=== PATIENT | male | born 1955 | race Caucasian/White ===

== ENCOUNTER 2022-11-11 15:22 | Emergency (ER) | payer MEDICARE, SELFPAY ==
--- NOTE | 2022-11-11 | DI.US_ITS ---
Exam(s) US SOFT TISSUE EXTREMITY EXAM: US SOFT TISSUE EXTREMITY CLINICAL HISTORY: hematoma. TECHNIQUE: Ultrasound was performed using standard protocol. COMPARISON: No exams were available for comparison FINDINGS: Images submitted for interpretation from ultrasound examination of the anterolateral right lower leg- apparent area of clinical concern. The submitted images reveal a mix echogenic nonvascular mass measuring 5 x 1.7 x 3.8 cm. First consi deration is for hematoma. Close follow-up to resolution recommended. IMPRESSION: 5 x 1.7 x 3.8 cm probable hematoma. Close follow-up recommended. DATA REPOSITORY:
[2022-11-11 15:29] VITALS: BP 178/98; PULSE 81; RESP 15; TEMP 36.4; O2SAT 99
--- NOTE | 2022-11-11 16:29 | ED.GENADUL_ITS ---
Discharge Plan Disposition Patient Disposition: Home Condition: Stable Discharge Details Clinical Impression: Cellulitis ED Provider: Aga Andrade Home Meds and New Rx's Prescriptions: New cephalexin 500 mg capsule 500 mg PO QID Qty: 28 0RF No Action clindamycin HCl 150 mg capsule 450 mg PO TID 7 Days Qty: 63 0RF Discharge Instructions Instructions: Cellulitis (ED) Additional Instructions: Continue heat or ice to the area for comfort and elevation to help reduce swelling Take antibiotic as prescribed Referrals: Virginie Montenegro MD [ [facility] STAFF PHYSICIAN] - (Call next week for recheck if not improving return sooner if worsening) Discharge Data Discharge Date/Time-TO BE ENTERED AT DEPARTURE: 11/11/22 16:45 Medical Decision Making <Aga Andrade NP - Last Filed: 11/11/22 16:36> Medical Records Medical records reviewed: Yes I reviewed the patient's medical records. Imaging Data Radiologic Study: Imaging: Ultrasound (Right lower extremity) Radiologist's impression: Close Extremity Ultrasound (Signed) Román Saenz - 11/11/22 00:00 Launch?Image Patient Name: Romel Pritchard Unit #: [id number] Loc: ER ? Ordering Provider:? Aga Andrade [employer] CLERK Status: REG ER ? Primary Care Provider: Unknown,Unknown Date of Exam: 11/11/22 Sex: M ? Admission Date: 11/11/22? : 1955 ? Age: 67 ? Exam(s) US SOFT TISSUE EXTREMITY EXAM:? US SOFT TISSUE EXTREMITY CLINICAL HISTORY: ? hematoma.? TECHNIQUE:? Ultrasound was performed using standard protocol. COMPARISON:? No exams were available for comparison FINDINGS: Images submitted for interpretation from ultrasound examination of the anterolateral right lower leg-apparent area of clinical concern. The submitted images reveal a mix echogenic nonvascular mass measuring 5 x 1.7 x 3.8 cm.? First consideration is for hematoma.? Close follow-up to resolution recommended. IMPRESSION: 5 x 1.7 x 3.8 cm probable hematoma.? Close follow-up recommended.? DATA REPOSITORY:? <Je Lundy MD - Last Filed: 11/23/22 17:34> Note: I did not evaluate this patient. The patient was seen, evaluated, treated and dispositioned independently by MADELINE Andrade. HPI <Aga Andrade NP - Last Filed: 11/11/22 16:36> General Mode of arrival: ambulatory . Date/Time Provider Initiated Documentation: 11/11/22 15:24 . Limitations to Documentation: no limitations . Information obtained by: patient . HPI Narrative: 67-year-old male patient presents to the emergency department for evaluation of right lower extremity swelling and now redness. He originally injured his leg last weekend striking it against something he had a small abrasion the area had significant swelling which has improved. He has kept it iced and elevated. Today he is noticing some erythema distally to the original injury. He has had no fever or signs of systemic infection. His vital signs are stable he has been ambulatory and again repeat porting improvement in the swelling but now with erythema. Related Data Home Medications Medication Instructions Recorded Confirmed cephalexin 500 mg capsule 500 mg PO QID #28 caps 11/11/22 11/18/22 clindamycin HCl 150 mg capsule 450 mg PO TID 7 days #63 caps 11/18/22 Previous Rx's Medication Instructions Recorded cephalexin 500 mg capsule 500 mg PO QID #28 caps 11/11/22 clindamycin HCl 150 mg capsule 450 mg PO TID 7 days #63 caps 11/18/22 Allergies Allergy/AdvReac Type Severity Reaction Status Date / Time NSAIDS (Non-Steroidal AdvReac Mild Hives Unverified 11/18/22 12:28 Anti-Inflamma General Stated Complaint: Cellulitis RITCHIE: 3 Review of Systems <Aga Andrade NP - Last Filed: 11/11/22 16:36> All systems reviewed & are unremarkable except as noted in HPI and below PFSH <Aga Andrade NP - Last Filed: 11/11/22 16:36> All Active Problems (Updated 11/18/22 @ 12:57 by En Clements NP) Cellulitis (Acute) Elevated blood pressure reading (Acute) Social History Smoking/Tobacco Use Status: Never Smoking risk assessment performed?: Yes Alcohol Intake: never Drug use: Never Substance use type: does not use Do you feel safe at home: Yes Do you feel safe in your relationship?: Yes Exam <Aga Andrade NP - Last Filed: 11/11/22 16:36> Const General: cooperative, healthy appearing, comfortable and no acute distress Nutritional Appearance: average body habitus Orientation: alert, awake and oriented x3 Skin General skin exam: ecchymosis (Yellowing consistent with healing) Lesions: lesion noted (Healing abrasion to right lower extremity) and other (Approximately 5 cm hematoma) Rashes: rashes noted (Erythema distally area marked) Neuro General: patient alert, patient awake and patient oriented x3 Gait: other (Limp) Motor: muscle tone normal throughout Course <Aga Andrade NP - Last Filed: 11/11/22 16:36> Vital Signs Vital signs: Vital Signs Temperature 36.4 C L 11/11/22 15:29 Pulse 81 11/11/22 15:29 Respiratory Rate 15 11/11/22 15:29 Blood Pressure 178/98 H 11/11/22 15:29 Pulse Oximetry 99 11/11/22 15:29 Temperature 36.4 C L 11/11/22 15:29 Temperature Source Temporal Artery Scan 11/11/22 15:29 Pulse 81 11/11/22 15:29 Respiratory Rate 15 11/11/22 15:29 Respiratory Effort Normal 11/11/22 15:35 Blood Pressure 178/98 H 11/11/22 15:29 Blood Pressure Position Sitting 11/11/22 15:29 Pulse Oximetry 99 11/11/22 15:29 Oxygen Delivery Method Room Air 11/11/22 15:29 Oxygen Flow Rate 0 11/11/22 15:29 Pain Level 0 11/11/22 15:29
== END 2022-11-11 16:45 | disposition home or self-care (01) ==
PROVIDERS: Emergency Provider Nurse Practitioner Acute Care
DX: L03.115 Cellulitis of right lower limb (principal)
CPT/HCPCS: 76881; 99284

== ENCOUNTER 2022-11-18 12:01 | Emergency (ER) | payer MEDICARE, SELFPAY ==
[2022-11-18 12:21] VITALS: BP 212/113; PULSE 66; RESP 18; TEMP 37.1; O2SAT 98
--- NOTE | 2022-11-18 12:52 | W.ED.GENAD ---
Discharge Plan Disposition Patient Disposition: Home Discharge Details Clinical Impression: Cellulitis, Elevated blood pressure reading Primary Care Provider: Raisa,Local ED Provider: En Clements Home Meds and New Rx's Prescriptions: New clindamycin HCl 150 mg capsule 450 mg PO TID 7 Days Qty: 63 0RF Continued cephalexin 500 mg capsule 500 mg PO QID Qty: 28 0RF Discharge Instructions Instructions: Cellulitis (ED) Additional Instructions: Please continue to monitor your site of infection and return immediately for any new or significant worsening of symptoms. Please start the new antibiotic as discussed and take until fully completed. It was also noted and discussed today about your significantly elevated blood pressure. At this time it is recommended that you follow-up with your primary care provider and after discussion we are not starting you on medication that would be the standard of care. Referrals: [facility] [Provider Group] - 1 week (Please call the office for arrangement of follow-up appointment next week) Discharge Data Discharge Date/Time-TO BE ENTERED AT DEPARTURE: 11/18/22 13:02 Medical Decision Making Patient presenting to the emergency department for chief complaint of right lower extremity hematoma and infection. Patient was seen approximately 5 days ago and placed upon Keflex for secondary cellulitis and had ultrasound imaging that confirmed hematoma. Patient states he took his last dose of the antibiotic this morning but is continuing to have redness and discomfort but does note that it did significantly improve since being on the medication. Patient denies any other symptoms. Physical exam consistent with hematoma and secondary cellulitis. There is still moderate amount of cellulitis present with also noted hematoma. Exam otherwise unremarkable no signs of systemic illness or full antibiotic failure. Did call and speak with Dr. Watkins on-call general surgeon about hematoma evacuation versus further monitoring. After full discussion of the case we decided that patient will be placed upon clindamycin and will be seen in general surgeons office next week for any further intervention as needed if not fully improving. Of note patient did have significantly elevated blood pressure. Patient states that he has had this for a while and was at one time on medications but they did not work . Discussed starting patient on medication here today and patient is adamant and refuses that he does not want any blood pressure medications. Did thoroughly discuss the risk with patient of his hypertension that was even noted on his last emergency visit. Again even through discussion of risk versus benefit patient is refusing to start on any medication and states he will follow-up with a primary care provider for recheck once he is done with his infection as he suspects this is what is causing the elevation. Offered to put patient on list for establishment of primary care provider given he does not have one but he states he will just follow-up with general surgeon next week. After discussion of diagnosis and plan of care patient has no further needs, questions, or concerns and states clear understanding to return to the emergency department for any worsening symptoms. This documentation was generated using [employer] system, please disregard any oddities of phrase or misspellings. HPI General Mode of arrival: ambulatory. Date/Time Provider Initiated Documentation: 11/18/22 12:09. Limitations to Documentation: no limitations. Information obtained by: patient and RN notes reviewed. History of Present Illness 67 year old M presents to the emergency department with the chief complaint of Right leg injury/infection, described as moderate, Quality is described as aching, and is localized to the right and lower extremity. Patient started experiencing this week(s) (2) and it has been constant. Medication improves symptom(s), Patient notes no other symptoms.. Patient did receive the following treatments prior to arrival, other (Keflex) Related Data Home Medications Medication Instructions Recorded Confirmed cephalexin 500 mg capsule 500 mg PO QID #28 caps 11/11/22 11/18/22 clindamycin HCl 150 mg capsule 450 mg PO TID 7 days #63 caps 11/18/22 Previous Rx's Medication Instructions Recorded cephalexin 500 mg capsule 500 mg PO QID #28 caps 11/11/22 clindamycin HCl 150 mg capsule 450 mg PO TID 7 days #63 caps 11/18/22 Allergies Allergy/AdvReac Type Severity Reaction Status Date / Time NSAIDS (Non-Steroidal AdvReac Mild Hives Unverified 11/18/22 12:28 Anti-Inflamma General Stated Complaint: Recheck RITCHIE: 3 Review of Systems Constitutional Constitutional: Denies body ache(s), Denies chills, Denies fever(s) and Denies headache(s) ENT Ears, Nose, Mouth, and Throat: Denies headache(s) Musculoskeletal Musculoskeletal: Reports as per HPI, Denies numbness and Denies tingling Integumentary/Breasts Skin/Breast: Reports as per HPI, Reports non-healing lesions and Reports erythema Neurologic Neurologic: Denies headache(s), Denies numbness and Denies tingling PFSH All Active Problems (Updated 11/18/22 @ 12:57 by En Clements NP) Cellulitis (Acute) Elevated blood pressure reading (Acute) Social History Smoking/Tobacco Use Status: Never Smoking risk assessment performed?: Yes Alcohol Intake: never Drug use: Never Substance use type: does not use Do you feel safe at home: Yes Do you feel safe in your relationship?: Yes Exam Const General: cooperative, healthy appearing, comfortable and no acute distress Nutritional Appearance: average body habitus Orientation: alert, awake and oriented x3 HENMT Mouth: moist mucous membranes Resp Effort & Inspection: normal respiratory effort, able to speak in complete sentences and no respiratory distress Cardio Rate: regular rate Rhythm: regular rhythm Pulses: normal peripheral pulses Skin General skin exam: ecchymosis (Yellowing consistent with healing) Lesions: lesion noted (Healing abrasion to right lower extremity) and other (Approximately 5 cm hematoma) Rashes: rashes noted (Erythema distally area marked) Neuro General: patient alert, patient awake and patient oriented x3 Motor: muscle tone normal throughout Sensory Exam: no sensory deficits noted Course Vital Signs Vital signs: Vital Signs Temperature 37.1 C 11/18/22 12:21 Pulse 66 11/18/22 12:21 Respiratory Rate 18 11/18/22 12:21 Blood Pressure 212/113 H 11/18/22 12:21 Pulse Oximetry 98 11/18/22 12:21 Temperature 37.1 C 11/18/22 12:21 Temperature Source Temporal Artery Scan 11/18/22 12:21 Pulse 66 11/18/22 12:21 Respiratory Rate 18 11/18/22 12:21 Respiratory Effort Normal, Non-Labored 11/18/22 12:29 Blood Pressure 212/113 H 11/18/22 12:21 Blood Pressure Position Sitting 11/18/22 12:21 Pulse Oximetry 98 11/18/22 12:21 Oxygen Delivery Method Room Air 11/18/22 12:21 Oxygen Flow Rate 0 11/18/22 12:21
--- NOTE | 2022-11-18 12:53 | NUR.NOTE ---
Nursing Note: PT needs follow up next week with general surgery to recheck hematoma & cellulitis. Angelina, ED
== END 2022-11-18 13:02 | disposition home or self-care (01) ==
PROVIDERS: Emergency Provider Nurse Practitioner Family
DX: L03.115 Cellulitis of right lower limb (principal); R03.0 Elevated blood-pressure reading, without diagnosis of hypertension
CPT/HCPCS: 99283; 99284

== ENCOUNTER → 2022-11-25 09:52 | Outpatient (BNVA) | payer MEDICARE, SELFPAY | PROVIDERS: Visit Provider Surgery | DX: S80.11XA Contusion of right lower leg, initial encounter (principal); W19.XXXA Unspecified fall, initial encounter; L08.9 Local infection of the skin and subcutaneous tissue, unspecified; L03.115 Cellulitis of right lower limb | CPT/HCPCS: 10140; 99203 ==

== ENCOUNTER → 2022-11-26 11:15 | Outpatient (BNVA) | payer MEDICARE, SELFPAY | PROVIDERS: Visit Provider Surgery | DX: L03.115 Cellulitis of right lower limb (principal); S80.11XD Contusion of right lower leg, subsequent encounter; X58.XXXD Exposure to other specified factors, subsequent encounter | CPT/HCPCS: 99212 ==

== ENCOUNTER → 2022-11-28 09:23 | Outpatient (BNVA) | payer MEDICARE, SELFPAY | PROVIDERS: Visit Provider Surgery | DX: S80.11XD Contusion of right lower leg, subsequent encounter (principal); X58.XXXD Exposure to other specified factors, subsequent encounter | CPT/HCPCS: 97605; 99212 ==

== ENCOUNTER → 2022-12-05 09:17 | Outpatient (BNVA) | payer MEDICARE, SELFPAY | PROVIDERS: Visit Provider Surgery | DX: S80.11XD Contusion of right lower leg, subsequent encounter (principal); X58.XXXD Exposure to other specified factors, subsequent encounter | CPT/HCPCS: 97605; 99212 ==

== ENCOUNTER → 2022-12-09 14:49 | Outpatient (BNVA) | payer MEDICARE, SELFPAY | PROVIDERS: Visit Provider Physical Therapy Assistant | DX: Z51.89 Encounter for other specified aftercare (principal); R60.0 Localized edema | CPT/HCPCS: 97605 ==

== ENCOUNTER → 2022-12-16 08:55 | Outpatient (BNVA) | payer MEDICARE, SELFPAY | PROVIDERS: Visit Provider Surgery | DX: S80.11XD Contusion of right lower leg, subsequent encounter (principal); X58.XXXD Exposure to other specified factors, subsequent encounter | CPT/HCPCS: 99212; 99213 ==

== ENCOUNTER → 2022-12-23 13:26 | Outpatient (BNVA) | payer MEDICARE, SELFPAY | PROVIDERS: Visit Provider Physical Therapy Assistant | DX: S80.11XD Contusion of right lower leg, subsequent encounter (principal); X58.XXXD Exposure to other specified factors, subsequent encounter | CPT/HCPCS: 11042 ==

== ENCOUNTER → 2022-12-30 13:13 | Outpatient (BNVA) | payer MEDICARE, SELFPAY | PROVIDERS: Visit Provider Physical Therapy Assistant | DX: S80.11XD Contusion of right lower leg, subsequent encounter (principal); X58.XXXD Exposure to other specified factors, subsequent encounter; L30.8 Other specified dermatitis | CPT/HCPCS: 11042; 11104; 11105 ==

== ENCOUNTER 2022-12-30 14:07 | Outpatient (REF) | payer MEDICARE, SELFPAY ==
--- NOTE | 2022-12-30 14:10 | SKI_PTH ---
PATIENT: Romel Pritchard LOC: [facility] U#:[id number] AGE/SX: 67/M ROOM: RE12/30/[address]: CHARLES Marshall : 1955 BED: DIS: 12/30/2022 SPEC #: [id number] RECD: 12/30/22 16:05 STATUS: BING REZaira #: [id number] LUDY: 12/30/22 14:[address]: Jerilyn Potter DEPT: Surgical Specimen RECD BY: Jing Mathews ENTERED: 12/30/22 16:06 SP TYPE: KELLY BRAUN DR: No Local Tissues: 1 - SKIN BIOPSY(SHAVE/PUNCH) 2 - SKIN BIOPSY(SHAVE/PUNCH) 3 - SKIN BIOPSY(SHAVE/PUNCH) 4 - SKIN BIOPSY(SHAVE/PUNCH) Procedures: SKIN LEVEL 4 SPECIAL STAIN 1 Comments: [id number]
== END 2022-12-30 14:08 | disposition home or self-care (01) ==
LOC: LBN 14:07
PROVIDERS: Visit Provider Physical Therapy Assistant
DX: L30.8 Other specified dermatitis (principal)
CPT/HCPCS: 88305; 88312

== ENCOUNTER → 2023-01-06 13:15 | Outpatient (BNVA) | payer MEDICARE, SELFPAY | PROVIDERS: Visit Provider Physical Therapy Assistant | DX: S80.11XD Contusion of right lower leg, subsequent encounter (principal); X58.XXXD Exposure to other specified factors, subsequent encounter; L30.8 Other specified dermatitis | CPT/HCPCS: 11042 ==

== ENCOUNTER → 2023-01-13 10:21 | Outpatient (BNVA) | payer MEDICARE, SELFPAY | PROVIDERS: Visit Provider Surgery | DX: S80.11XD Contusion of right lower leg, subsequent encounter (principal); X58.XXXD Exposure to other specified factors, subsequent encounter | CPT/HCPCS: 97605; 99212 ==

== ENCOUNTER → 2023-01-17 10:29 | Outpatient (BNVA) | payer MEDICARE, SELFPAY | PROVIDERS: Visit Provider Physical Therapy Assistant | DX: S80.11XD Contusion of right lower leg, subsequent encounter (principal); X58.XXXD Exposure to other specified factors, subsequent encounter | CPT/HCPCS: 97605 ==

== ENCOUNTER 2023-01-17 10:40 | Emergency (ER) | payer MEDICARE, SELFPAY ==
[2023-01-17] VITALS (8 sets, daily range): BP systolic 151–204; BP diastolic 87–118; PULSE 57–75; RESP 18–22; TEMP 36.5; O2SAT 96–99
--- NOTE | 2023-01-17 10:45 | DI.CT_ITS ---
Exam(s) CT BRAIN NECK CTA EXAM: CT BRAIN NECK CTA CLINICAL HISTORY: pain in left head and neck, eval for bleed, tumor. TECHNIQUE: Imaging Protocol: Axial CT angiography was performed with multi-slice acquisition and mu lti-planar and 3D reconstructions. CONTRAST MATERIAL: Intravenous: Omnipaque 350 Contrast volume:structured data in ml COMPARISON: No exams were available for comparison FINDINGS: CT Head W/O and W contrast: Ventricles and Extra axial spaces: Normal in size and morphology for the patient's age. Hemorrhage: None. Cerebral parenchyma: Normal. Midline shift: None. Brainstem/Cerebellum: Normal. Calvarium: Normal. Visualized Paranasal sinuses: Minimal mucous retention floor of the maxillary sinus. Prior sinus curtis humberto. Multifocal ethmoid sinus opacification. Mild mucosal thickening left frontal sinus. Partial opacification of the sphenoid sinuses. Mastoids: Clear. Soft Tissues: Unremarkable. Enhancement: Normal. CTA Brain W: Internal Carotid Arteries: Petrous: Normal. Cavernous: Normal. Cerebral: Normal. Middle Cerebral Arteries: Right: No aneurysm, occlusion or significant stenosis. Left: No aneurysm, occlusion or significant stenosis. Anterior Cerebral Arteries: Right: No aneurysm, occlusion or significant stenosis. Left: No aneurysm, occlusion or significant stenosis. Posterior cerebral Arteries: Right: No aneurysm, occlusion or significant stenosis. Left: No aneurysm, occlusion or significant stenosis. Vertebral Arteries: Right: No aneurysm, occlusion or significant stenosis. Left: No aneurysm, occlusion or significant stenosis. Basilar Artery: No aneurysm, occlusion or significant stenosis. CTA Neck W: Common Carotid: Right: Minimal plaque at bulb. No dissection, occlusion or significant stenosis. Left: Minimal plaque at bulb. No dissection, occlusion or significant stenosis. External Carotid: Right: No dissection, occlusion or significant stenosis. Left: No dissection, occlusion or significant stenosis. Internal Carotid: Right: No dissection, occlusion or significant stenosis. Left: No dissection, occlusion or significant stenosis. Vertebral Artery: Right: No dissection, occlusion or significant stenosis. Left: No dissection, occlusion or significant stenosis. Lung Apices: Normal. Bones: No acute abnormality. Degenerative disc changes at C6-7. Bilateral neural foraminal narrowin g at this level. Facet degenerative changes on the left at C4-5 cause left neural foraminal narrowin g. Soft Tissues: Normal. IMPRESSION: 1. Normal CTA examination of the [place]. 2. Unremarkable CT Head. 3. Neck CTA: Minimal plaque at the common carotid bulbs. No stenosis. 4. Degenerative changes in the cervical spine greatest at C6-7. RADIATION DOSE DELIVERED: 2,083.2mGy.cm Total DLP DATA REPOSITORY: All CT scans at this facility are submitted to the National Radiology Data Registry (NRDR) Dose Index Registry (DIR) with the [employer] (ACR). RADIATION OPTIMIZATION: All CT scans at this facility use at least one of these dose optimization te chniques: automated exposure control; mA and/or kV adjustment per patient size (includes targeted exa ms where dose is matched to clinical indication); or iterative reconstruction.
--- NOTE | 2023-01-17 10:59 | ED.GENADUL_ITS ---
Discharge Plan Disposition Patient Disposition: Home Discharge Details Clinical Impression: Hypertensive urgency, Dizziness Primary Care Provider: Unknown,Unknown ED Provider: Zaid Merino Home Meds and New Rx's Prescriptions: New lisinopril 20 mg tablet 20 mg PO DAILY Qty: 30 0RF No Action ibuprofen 200 mg tablet 600 mg PO Q6H PRN triamcinolone acetonide 0.5 % cream 1 applic topical DAILY Qty: 15 0RF Discharge Instructions Instructions: Hypertension (ED), Dizziness (ED) Additional Instructions: At this time your work-up is returned and is reassuring. Your CAT scan of your brain and vessels shows no evidence of bleed or stroke or tumor. As we discussed together your blood pressure is notably elevated. Please continue to cut salt from your diet, exercise regularly, and this may help in reducing her blood pressure. In addition to this she would likely need a medication. I started you on a small dose of an antihypertensive medication called lisinopril. This has been sent to your pharmacy on file. Please take this as directed. We will establish a family doctor for you, and they will contact you for an appointment time. If you notice any worsening of your symptoms, or any new symptoms such as vomiting, diarrhea, fever, chills, shortness of breath, chest pain, numbness, weakness, or fainting , please return immediately to the emergency department for reevaluation. Please follow up with your primary care provider as soon as possible for reassessment and reevaluation. As always, it was a pleasure participating in your medical care today. Medical Decision Making 67-year-old male with no significant past medical history who presents today for evaluation of headache and neck pain. Patient states that yesterday evening at around 7 PM he developed some mild achiness in his left neck. This then transitioned throughout the evening to a mild headache in the left-hand side. It was gradual in onset. He does feel slightly dizzy as well as slightly confused. He does live alone but does have family nearby. He denies any room spinning sensation or anything like that. He denies any fever or chills. He denies any falls or trauma. He denies any double vision. He denies ever having symptoms like this before. He denies any history of headache. He does state that his feet feel heavy like they have cement on them. He states that he does feel little unsteady with walking as well. No other complaints at this time. He does have chronic tinnitus. The patient denies any headache red flags of worst headache of life, thunderclap headache, neck pain, fever, chills, concerning family history of polycystic kidney disease, Marfan syndrome, Yandy- Danlos syndrome, abdominal aortic aneurysm, aortic dissection, or intracranial aneurysm. Demonstrates well-appearing male, no focal deficits. No nystagmus. He is able to ambulate well without an ataxic gait. No nuchal rigidity. Uncertain as to the cause of his etiology. Dehydration, complex migraine, less likely would be a tickborne illness. We will get a CT/CTA to rule out bleed, we will gently rehydrate, monitor for other abnormalities and reassess. We will give labetalol for his blood pressure. He is notably elevated with a blood pressure of 190/118. Hypertensive urgency is also on the differential. Symptoms appear clinically inconsistent with meningitis. 1:41 PM On reassessment after Compazine and labetalol patient has complete resolution of his symptoms. He states that he feels well, headache has resolved, neck pain has resolved, he no longer feels out of it feels much better and feels comfortable going home. Symptoms appear notably clinically inconsistent with meningitis. Additionally both the history and symptomatology appear inconsistent with an intracranial bleed/hemorrhage. I suspect that his symptoms may be from mild dehydration versus mild hypertensive urgency. Work-up is otherwise stable. With resolution of his symptoms, I do feel that going home is reasonable. No current clinical indication for an emergent MRI. Patient does not have a primary care provider, we will place a referral for a new PCP for establishment. I did discuss his blood pressure, the patient was quite hesitant about starting an antihypertensive as in the past he had been able to manage his blood pressure with diet management. Unfortunately in spite of his current diet management he still does have notable hypertension. I did recommend lisinopril and will call in a prescription to his pharmacy. I do encourage him to still continue the dietary management with cutting down salt, and increasing exercise. Otherwise patient is stable for discharge. Discussed red flags for which to return. I have extensively reviewed the treatment plan and discharge instructions with the patient. I have addressed all patient concerns at this time. The patient was made aware of what symptoms to monitor for that would warrant a return to the emergency department. Discussed the plan with the patient, they demonstrate verbal understanding and agreement with our assessment and plan at this time. The documentation in this chart was dictated using [employer] dictation software. Please excuse any dictation errors. FINDINGS: CT Head W/O and W contrast: Ventricles and Extra axial spaces: Normal in size and morphology for the patient's age. Hemorrhage: None. Cerebral parenchyma: Normal. Midline shift: None. Brainstem/Cerebellum: Normal. Calvarium: Normal. Visualized Paranasal sinuses: Minimal mucous retention floor of the maxillary sinus. Prior sinus surgery. Multifocal ethmoid sinus opacification. Mild mucosal thickening left frontal sinus. Partial opacification of the sphenoid sinuses. Mastoids: Clear. Soft Tissues: Unremarkable. Enhancement: Normal. CTA Brain W: Internal Carotid Arteries: Petrous: Normal. Cavernous: Normal. Cerebral: Normal. Middle Cerebral Arteries: Right: No aneurysm, occlusion or significant stenosis. Left: No aneurysm, occlusion or significant stenosis. Anterior Cerebral Arteries: Right: No aneurysm, occlusion or significant stenosis. Left: No aneurysm, occlusion or significant stenosis. Posterior cerebral Arteries: Right: No aneurysm, occlusion or significant stenosis. Left: No aneurysm, occlusion or significant stenosis. Vertebral Arteries: Right: No aneurysm, occlusion or significant stenosis. Left: No aneurysm, occlusion or significant stenosis. Basilar Artery: No aneurysm, occlusion or significant stenosis. CTA Neck W: Common Carotid: Right: Minimal plaque at bulb. No dissection, occlusion or significant stenosis. Left: Minimal plaque at bulb. No dissection, occlusion or significant stenosis. External Carotid: Right: No dissection, occlusion or significant stenosis. Left: No dissection, occlusion or significant stenosis. Internal Carotid: Right: No dissection, occlusion or significant stenosis. Left: No dissection, occlusion or significant stenosis. Vertebral Artery: Right: No dissection, occlusion or significant stenosis. Left: No dissection, occlusion or significant stenosis. Lung Apices: Normal. Bones: No acute abnormality. Degenerative disc changes at C6-7. Bilateral neural foraminal narrowing at this level. Facet degenerative changes on the left at C4-5 cause left neural foraminal narrowing. Soft Tissues: Normal. IMPRESSION: 1. Normal CTA examination of the [place]. 2. Unremarkable CT Head. 3. Neck CTA: Minimal plaque at the common carotid bulbs. No stenosis. 4. Degenerative changes in the cervical spine greatest at C6- HPI General Date/Time Provider Initiated Documentation: 01/17/23 10:45 . HPI Narrative: 67-year-old male with no significant past medical history who presents today for evaluation of headache and neck pain. Patient states that yesterday evening at around 7 PM he developed some mild achiness in his left neck. This then transitioned throughout the evening to a mild headache in the left-hand side. It was gradual in onset. He does feel slightly dizzy as well as slightly confused. He does live alone but does have family nearby. He denies any room spinning sensation or anything like that. He denies any fever or chills. He denies any falls or trauma. He denies any double vision. He denies ever having symptoms like this before. He denies any history of headache. He does state that his feet feel heavy like they have cement on them. He states that he does feel little unsteady with walking as well. No other complaints at this time. He does have chronic tinnitus. Related Data Home Medications Medication Instructions Recorded Confirmed ibuprofen 200 mg tablet 600 mg PO Q6H PRN 11/25/22 01/13/23 triamcinolone acetonide 0.5 % 1 applic topical DAILY Dermatitis 01/08/23 01/13/23 topical cream on hands #15 grams lisinopril 20 mg tablet 20 mg PO DAILY #30 tabs 01/17/23 Previous Rx's Medication Instructions Recorded triamcinolone acetonide 0.5 % 1 applic topical DAILY Dermatitis 01/08/23 topical cream on hands #15 grams lisinopril 20 mg tablet 20 mg PO DAILY #30 tabs 01/17/23 Allergies Allergy/AdvReac Type Severity Reaction Status Date / Time NSAIDS (Non-Steroidal AdvReac Mild Hives Unverified 01/17/23 11:00 Anti-Inflamma General Stated Complaint: Nk/Back Pain RITCHIE: 3 Review of Systems All systems reviewed & are unremarkable except as noted in HPI and below PFSH All Active Problems (Updated 01/17/23 @ 13:37 by Zaid Merino DO) Hypertensive urgency (Acute) Dizziness (Acute) Spongiotic dermatitis (Acute) Skin rash (Acute) Infected hematoma (Acute) Surgical History S/P debridement infected hematoma of right porter Social History (Reviewed 01/17/23 @ 11:22 by JASWINDER Farah Smoking/Tobacco Use Status: Never Smoking risk assessment performed?: Yes Alcohol Intake: never Drug use: Never Substance use type: does not use Do you feel safe at home: Yes Do you feel safe in your relationship?: Yes Exam Narrative Exam Narrative: 1.Const: Well-nourished, Well-developed, appearing stated age 2.Eyes: PERRL, no conjunctival injection, and symmetrical lids. 3.ENT: Atraumatic external nose and ears. Moist MM. Neck: Symmetric, trachea midline, No thyromegaly. Patient demonstrates good movement of cervical neck. There is no nuchal rigidity, no nuchal tenderness. Patient is able to flex the neck without any difficulty or significant pain. Negative Kernig's and Brudzinski sign. 4.CVS: +S1/S2, No murmurs or gallops. Peripheral pulses 2+ and equal in all extremities. Brisk capillary refill in all extremities. 5.RESP: Unlabored respiratory effort. Clear to auscultation bilaterally. No wheezes rales or rhonchi 6.GI: Soft, Nontender/Nondistended, No hepatosplenomegaly. No guarding or rebound. 7.MSK: Normocephalic/Atraumatic, Extremities w/o deformity or ttp No cyanosis or clubbing, Normal movement of all extremities 8.Skin: Warm, Dry. No rashes or lesions. 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 Sensation grossly intact, no focal neurologic deficits. All 6 cardinal planes of vision are fully intact. No evidence of rotatory or vertical nystagmus. The patient demonstrated a normal shhoae-gubl-lwguko, good dexterity. There was no evidence of dysdiadochokinesia. Patient was able to ambulate without difficulty. There was no wide-based gait. Romberg testing was normal. Fell-ny-gbjl testing was normal. Sensation was intact bilaterally as well as muscle strength bilaterally for all extremities. Patient was able to verbalize butter cup with no slurring, or miss pronunciation. Cerebellar function testing is normal. The patient demonstrates a normal hints exam with no findings concerning for a central event. No vertical nystagmus. The head impulse test is negative for any significant central abnormality. Normal test of skew. No suggestion of a central cerebellar event. 10.Psych: (AAO) x3. Appropriate mood and affect Course Vital Signs Vital signs: Vital Signs Temperature 36.5 C 01/17/23 10:42 Pulse 75 01/17/23 10:42 Respiratory Rate 18 01/17/23 10:42 Blood Pressure 190/118 H 01/17/23 10:42 Pulse Oximetry 99 01/17/23 10:42 Temperature 36.5 C 01/17/23 10:42 Temperature Source Skin 01/17/23 10:42 Pulse 75 01/17/23 10:42 Respiratory Rate 18 01/17/23 10:42 Blood Pressure 190/118 H 01/17/23 10:42 Pulse Oximetry 99 01/17/23 10:42 Oxygen Delivery Method Room Air 01/17/23 10:42 Oxygen Flow Rate 0 01/17/23 10:42 Pain Level 2 01/17/23 10:42
[2023-01-17 11:16] LABS: Abs Immature Grans 0.01 10^3/uL (0.0-0.06); Absolute Basophil Count 0.05 10^3/uL (0.0-0.2); Absolute Eosinophil Count 0.24 10^3/uL (0.0-0.7); Absolute Lymphocyte Count 0.98 10^3/uL (1.2-3.4); Absolute Monocyte Count 0.38 10^3/uL (0.1-0.8); Absolute Neutrophil Count 2.98 10^3/uL (1.2-6.7); Basophils % 1.1; Eosinophils % 5.2; HCT 44.5 % (40.0-50.0); HGB 14.8 g/dL (13.5-17.5); Immature Grans % 0.2; Lymphocytes % 21.1; MCH 29.4 pg (27.0-33.0); MCHC 33.3 % (32.0-36.0); MCV 88 fL (80-95); MPV 8.3 fL (8.0-11.0); Monocytes % 8.2; Neutrophils % 64.2; Platelet Count 311 10^3/uL (130-400); RBC 5.04 10^6/uL (4.36-5.78); RDW 12.7 % (11.8-14.1); WBC 4.64 10^3/uL (4.4-10.8)
[2023-01-17] MEDS: Normal Saline 1,000 ML 1000 ML IV (11:17)
[2023-01-17 11:19] LABS: BE (Venous) 0 mmol/L (-2-3); HCO3 (Venous) 25 mmol/L (23-28); O2 Sat (Venous) 71 %; TCO2 (Venous) 22 mmol/L (24-29); pCO2 (Venous) 43 mmHg (41-51); pH (Venous) 7.37 (7.31-7.41); pO2 (Venous) 38 mmHg
[2023-01-17 11:27] LABS: Ammonia < 10 umol/L (11-32)
[2023-01-17 11:38] LABS: PTT Activated 25.5 sec (21.5-31.9); Prothrombin Time 9.9 sec (9.3-11.0)
[2023-01-17 11:46] LABS: ALT 29 U/L (16-63); AST 18 U/L (15-37); Albumin 3.9 g/dL (3.4-5.0); Alkaline Phosphatase 94 U/L (46-116); Anion Gap 8.4 mmol/L (3-11); BUN 14 mg/dL (7-18); Bilirubin, Total 0.8 mg/dL (0.2-1.0); CO2 26.6 mmol/L (21.0-32.0); Calcium 8.8 mg/dL (8.5-10.1); Chloride 105 mmol/L (98-107); Estimated GFR 83.01 (mL/min/1.73m2); Glucose 108 mg/dL (74-106); Potassium 4.1 mmol/L (3.5-5.1); Sodium 140 mmol/L (136-145); TSH (W/Ref FT4) 2.55 uIU/mL (0.36-3.74); Total Protein 7.6 g/dL (6.4-8.2)
[2023-01-17 11:47] LABS: ETHANOL BLOOD < 3.0 mg/dL (<10)
[2023-01-17] MEDS: Labetalol 100 MG/20 ML VIAL 10 MG IVP (11:51)
[2023-01-17] MEDS: Normal Saline - Diluent 50 ML VIAL IJ (11:53)
[2023-01-17] MEDS: Normal Saline Flush 10 ML SYR IVP (11:54)
[2023-01-17] MEDS: Metoclopramide 10 MG/2 ML VIAL IVP (11:55)
[2023-01-17 13:17] LABS: Bilirubin Negative (Negative); Blood Negative (Negative); Clarity Clear (Clear); Glucose Negative (Negative); Ketones Negative (Negative); Leukocyte Esterase Negative (Negative); Nitrite Negative (Negative); Urobilinogen 0.2 mg/dL (Up to 0.2); pH 6.5 (5-8)
--- NOTE | 2023-01-17 13:41 | NUR.NOTE ---
Referral to PCP within a month for hypertension, given to care management.Nursing Note:
[2023-01-17 13:52] LABS: COVID-19 PCR Negative (Negative); Influenza A PCR Negative (Negative); Influenza B PCR Negative (Negative); RSV PCR Negative (Negative)
[2023-01-17 13:54] LABS: Source Nasopharynx
== END 2023-01-17 13:44 | disposition home or self-care (01) ==
PROVIDERS: Emergency Provider Student in an Organized Health Care Education/Training Program
DX: I16.0 Hypertensive urgency (principal); R42 Dizziness and giddiness; M54.2 Cervicalgia; R51.9 Headache, unspecified
CPT/HCPCS: 36415; 70496; 70498; 80053; 82805; 87637; 96361; 96374; 96375; 97605; 99285; 80320; 81003; 82140; 84443; 85025; 85610; 85730; 99284; J2765

== ENCOUNTER → 2023-01-20 08:44 | Outpatient (BNVA) | payer MEDICARE, SELFPAY | PROVIDERS: Visit Provider Surgery | DX: S80.11XD Contusion of right lower leg, subsequent encounter (principal); X58.XXXD Exposure to other specified factors, subsequent encounter; I16.0 Hypertensive urgency; L30.8 Other specified dermatitis | CPT/HCPCS: 99212; 99213 ==

== ENCOUNTER 2023-01-26 18:47 | Outpatient (REF) | payer MEDICARE, SELFPAY ==
[2023-01-26 16:39] LABS: Anion Gap 11.4 mmol/L (3-11); BUN 17 mg/dL (7-18); CO2 24.6 mmol/L (21.0-32.0); CREATININE 1.1 mg/dL (0.70-1.30); Chloride 104 mmol/L (98-107); Estimated GFR 74.04 (mL/min/1.73m2); Glucose 104 mg/dL (74-106); Potassium 4.8 mmol/L (3.5-5.1); Sodium 140 mmol/L (136-145)
== END 2023-01-26 18:48 | disposition home or self-care (01) ==
LOC: NCHCN 18:47
PROVIDERS: PCP Family Medicine; Visit Provider Family Medicine
DX: I10 Essential (primary) hypertension (principal)
CPT/HCPCS: 80048

== ENCOUNTER → 2023-01-27 08:23 | Outpatient (BNVA) | payer MEDICARE, SELFPAY | PROVIDERS: PCP Family Medicine; Referring Provider Family Medicine; Visit Provider Surgery | DX: S80.11XD Contusion of right lower leg, subsequent encounter (principal); X58.XXXD Exposure to other specified factors, subsequent encounter | CPT/HCPCS: 99212; 99213 ==

== ENCOUNTER → 2023-02-03 07:50 | Outpatient (BNVA) | payer MEDICARE, SELFPAY | PROVIDERS: PCP Family Medicine; Referring Provider Family Medicine; Visit Provider Surgery | DX: S80.11XD Contusion of right lower leg, subsequent encounter (principal); X58.XXXD Exposure to other specified factors, subsequent encounter | CPT/HCPCS: 99212; 99213 ==

== ENCOUNTER 2023-02-08 11:19 | Outpatient (REF) | payer MEDICARE, SELFPAY ==
[2023-02-08 17:21] LABS: Abs Immature Grans 0.02 10^3/uL (0.0-0.06); Absolute Basophil Count 0.08 10^3/uL (0.0-0.2); Absolute Eosinophil Count 0.33 10^3/uL (0.0-0.7); Absolute Lymphocyte Count 1.37 10^3/uL (1.2-3.4); Absolute Monocyte Count 0.54 10^3/uL (0.1-0.8); Absolute Neutrophil Count 4.24 10^3/uL (1.2-6.7); Basophils % 1.2; HCT 45.9 % (40.0-50.0); Immature Grans % 0.3; Lymphocytes % 20.8; MCH 29.2 pg (27.0-33.0); MCHC 32.7 % (32.0-36.0); MCV 89 fL (80-95); MPV 9.1 fL (8.0-11.0); Monocytes % 8.2; Neutrophils % 64.5; Platelet Count 363 10^3/uL (130-400); RBC 5.14 10^6/uL (4.36-5.78); RDW 12.3 % (11.8-14.1); RDW-SD 40.4 fL; WBC 6.58 10^3/uL (4.4-10.8)
[2023-02-08 17:49] LABS: ALT 23 U/L (16-63); AST 12 U/L (15-37); Albumin 4.1 g/dL (3.4-5.0); Alkaline Phosphatase 94 U/L (46-116); Anion Gap 9.3 mmol/L (3-11); BUN 14 mg/dL (7-18); Bilirubin, Total 0.6 mg/dL (0.2-1.0); CO2 25.7 mmol/L (21.0-32.0); CREATININE 1.2 mg/dL (0.70-1.30); Calcium 9.1 mg/dL (8.5-10.1); Calculated LDL 131 mg/dL (<100); Chloride 101 mmol/L (98-107); Cholesterol 206 mg/dL (<200); Glucose 118 mg/dL (74-106); HDL Cholesterol 49 mg/dL (40-60); Potassium 4.6 mmol/L (3.5-5.1); Sodium 136 mmol/L (136-145); Total Protein 7.6 g/dL (6.4-8.2); Triglyceride 131 mg/dL (<150)
== END 2023-02-08 11:20 | disposition home or self-care (01) ==
LOC: NCHCN 11:19
PROVIDERS: PCP Family Medicine; Visit Provider Family Medicine
DX: I10 Essential (primary) hypertension (principal); G45.9 Transient cerebral ischemic attack, unspecified
CPT/HCPCS: 80053; 80061; 85025

== ENCOUNTER → 2023-02-10 08:44 | Outpatient (BNVA) | payer MEDICARE, SELFPAY | PROVIDERS: PCP Family Medicine; Referring Provider Family Medicine; Visit Provider Physical Therapy Assistant | DX: S80.11XD Contusion of right lower leg, subsequent encounter (principal); X58.XXXD Exposure to other specified factors, subsequent encounter ==

== ENCOUNTER → 2023-02-23 07:22 | Outpatient (BNVA) | payer MEDICARE, SELFPAY | PROVIDERS: PCP Family Medicine; Referring Provider Family Medicine; Visit Provider Physical Therapy Assistant | DX: S80.11XD Contusion of right lower leg, subsequent encounter (principal); X58.XXXD Exposure to other specified factors, subsequent encounter | CPT/HCPCS: 99212 ==

== ENCOUNTER → 2023-03-13 07:55 | Outpatient (BNVA) | payer MEDICARE, SELFPAY | PROVIDERS: PCP Family Medicine; Referring Provider Family Medicine; Visit Provider Surgery | DX: S80.11XD Contusion of right lower leg, subsequent encounter (principal); X58.XXXD Exposure to other specified factors, subsequent encounter | CPT/HCPCS: 99212; 99213 ==

== ENCOUNTER 2023-04-20 03:15 | Outpatient (CLI) | payer MEDICARE, SELFPAY ==
[2023-04-20 13:07] LABS: MCH 29.5 pg (27.0-33.0); MCHC 33.3 % (32.0-36.0); MCV 88 fL (80-95); MPV 8.2 fL (8.0-11.0); Platelet Count 335 10^3/uL (130-400); RBC 4.75 10^6/uL (4.36-5.78); RDW 13.2 % (11.8-14.1); RDW-SD 42.5 fL
[2023-04-20 13:31] LABS: ALT 34 U/L (16-63); AST 16 U/L (15-37)
[2023-04-20 13:33] LABS: Cholesterol 175 mg/dL (<200); Triglyceride 121 mg/dL (<150)
== END 2023-04-20 03:16 | disposition home or self-care (01) ==
PROVIDERS: PCP Family Medicine; Visit Provider Dermatology
DX: L40.1 Generalized pustular psoriasis (principal); Z79.899 Other long term (current) drug therapy
CPT/HCPCS: 36415; 85027; 82465; 84450; 84460; 84478

== ENCOUNTER 2023-09-12 08:50 | Outpatient (CLI) | payer MEDICARE, SELFPAY ==
[2023-09-12 09:06] LABS: HCT 43.5 % (40.0-50.0); HGB 14.2 g/dL (13.5-17.5); MCH 30.9 pg (27.0-33.0); MCHC 32.6 % (32.0-36.0); MCV 95 fL (80-95); MPV 8.3 fL (8.0-11.0); Platelet Count 283 10^3/uL (130-400); RDW 13.3 % (11.8-14.1); RDW-SD 46.1 fL; WBC 6.18 10^3/uL (4.4-10.8)
[2023-09-12 09:31] LABS: ALT 35 U/L (16-63); AST 17 U/L (15-37); Cholesterol 191 mg/dL (<200); Triglyceride 97 mg/dL (<150)
[2023-09-14 10:49] LABS: TB Interpretation Negative (Negative); TB2 Ag minus Nil 0.01 IU/mL
== END 2023-09-12 08:51 | disposition home or self-care (01) ==
LOC: LBO 08:53
PROVIDERS: PCP Family Medicine; Visit Provider Dermatology
DX: Z79.899 Other long term (current) drug therapy (principal)
CPT/HCPCS: 36415; 85027; 82465; 84450; 84460; 84478; 86480

== ENCOUNTER 2023-11-20 12:58 | Outpatient (CLI) | payer MEDICARE, SELFPAY ==
[2023-11-20 13:28] LABS: HCT 42.6 % (40.0-50.0); HGB 14.2 g/dL (13.5-17.5); MCH 31.3 pg (27.0-33.0); MCHC 33.3 % (32.0-36.0); MCV 94 fL (80-95); MPV 8.6 fL (8.0-11.0); Platelet Count 306 10^3/uL (130-400); RBC 4.54 10^6/uL (4.36-5.78); RDW 13.5 % (11.8-14.1); RDW-SD 46.6 fL; WBC 6.54 10^3/uL (4.4-10.8)
[2023-11-20 13:50] LABS: ALT 36 U/L (16-63); AST 14 U/L (15-37)
[2023-11-20 14:27] LABS: Cholesterol 194 mg/dL (<200); Triglyceride 98 mg/dL (<150)
== END 2023-11-20 12:59 | disposition home or self-care (01) ==
LOC: LBO 12:58
PROVIDERS: PCP Family Medicine; Visit Provider Dermatology
DX: L40.1 Generalized pustular psoriasis (principal)
CPT/HCPCS: 36415; 85027; 82465; 84450; 84460; 84478

== ENCOUNTER 2024-03-15 02:50 | Outpatient (CLI) | payer MEDICARE, SELFPAY ==
[2024-03-15 15:42] LABS: HCT 42.1 % (40.0-50.0); HGB 14.3 g/dL (13.5-17.5); MCH 32.6 pg (27.0-33.0); MCV 96 fL (80-95); MPV 8.5 fL (8.0-11.0); Platelet Count 309 10^3/uL (130-400); RBC 4.39 10^6/uL (4.36-5.78); RDW-SD 45.5 fL; WBC 6.36 10^3/uL (4.4-10.8)
[2024-03-15 16:27] LABS: ALT 24 U/L (16-63); AST 11 U/L (15-37)
[2024-03-15 16:30] LABS: Cholesterol 175 mg/dL (<200); Triglyceride 119 mg/dL (<150)
== END 2024-03-15 02:51 | disposition home or self-care (01) ==
LOC: LBO 02:50
PROVIDERS: PCP Family Medicine; Visit Provider Dermatology
DX: Z79.899 Other long term (current) drug therapy (principal)
CPT/HCPCS: 36415; 85027; 82465; 84450; 84460; 84478

== ENCOUNTER 2024-08-31 15:17 | Emergency (ER) | payer MEDICARE, SELFPAY ==
[2024-08-31 15:18] VITALS: BP 146/89; PULSE 103; RESP 18; TEMP 36.5; O2SAT 95
[2024-08-31] MEDS: Lidocaine 1% Pres-Free W/EPI 1/200,000 30 ML VIAL (15:43)
--- NOTE | 2024-08-31 19:43 | ED.GENADUL_ITS ---
Discharge Plan Disposition Patient Disposition: Home Discharge Details Clinical Impression: Laceration of extensor tendon of left thumb at hand level Primary Care Provider: Pankaj Helm ED Provider: Jing Lyle Home Meds and New Rx's Prescriptions: New clindamycin HCl 300 mg capsule 300 mg PO Q6H 5 Days Qty: 20 0RF Continued ibuprofen 200 mg tablet 600 mg PO Q6H PRN triamcinolone acetonide 0.5 % cream 1 applic topical DAILY Qty: 15 0RF methotrexate sodium 2.5 mg tablet 2.5 mg PO .COMPLEX Patient Comments: Take 6 of the 2.5mg tablets by mouth 1 day a week to equal 15 mg dose. Rx Instructions: 2.5 mg orally; see direction lisinopril 20 mg tablet 20 mg PO DAILY Qty: 30 0RF Discharge Instructions Instructions: Tendon Laceration (DC), Laceration Repair With Stitches ED Additional Instructions: you will need to follow-up with orthopedics as I suspect you lacerated your extensor pollicis longus tendon take antibiotic as prescribed tylenol as need for pain wear splint during day change dressing daily and wash with soap and water return with spreading redness, fever, worsening pain Referrals: Pankaj Helm MD [Primary Care Provider] - Mert Calles MD [[facility] STAFF PHYSICIAN] - 3 days Discharge Data Discharge Date/Time-TO BE ENTERED AT DEPARTURE: 08/31/24 16:47 HPI General Date/Time Provider Initiated Documentation: 08/31/24 15:27 . 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 No additional injuries reported. Tetanus vaccination up-to-date 5 years ago. No history of coagulopathy. No changes in sensation or strength. Related Data Home Medications ?Medication ?Instructions ?Recorded ?Confirmed ibuprofen 200 mg tablet 600 mg PO Q6H PRN 11/25/22 08/31/24 lisinopril 20 mg tablet 20 mg PO DAILY #30 tabs 01/17/23 08/31/24 triamcinolone acetonide 0.5 % 1 applic topical DAILY Dermatitis 01/23/23 08/31/24 topical cream on hands #15 grams clindamycin HCl 300 mg capsule 300 mg PO Q6H 5 days #20 caps 08/31/24 methotrexate sodium 2.5 mg tablet 2.5 mg PO .COMPLEX 08/31/24 08/31/24 Previous Rx's ?Medication ?Instructions ?Recorded lisinopril 20 mg tablet 20 mg PO DAILY #30 tabs 01/17/23 triamcinolone acetonide 0.5 % 1 applic topical DAILY Dermatitis 01/23/23 topical cream on hands #15 grams clindamycin HCl 300 mg capsule 300 mg PO Q6H 5 days #20 caps 08/31/24 Allergies Allergy/AdvReac Type Severity Reaction Status Date / Time NSAIDS (Non-Steroidal AdvReac Mild Hives Unverified 08/31/24 15:22 Anti-Inflamma General Stated Complaint: Laceration RITCHIE: 4 Exam Narrative Exam Narrative: General Appearance: Alert and oriented, not in acute distress. Vital signs: Within normal limits. HEENT: Within normal limits. Respiratory: Within normal limits. Cardiovascular: Gastrointestinal: Genitourinary: Lymphatic: Back, Musculoskeletal: Extremities: Approximately 3 cm laceration on the dorsal aspect of the left thumb. Unable to fully extend thumb with an obvious defect to the extensor tendon. Sensation intact distally, able to fully flex and extend distal thumb. Skin: Warm and dry, no rash. Neurological: Normal. Psychiatric: Other observations: Course Vital Signs Vital signs: Vital Signs Temperature 36.5 C 08/31/24 15:18 Pulse 103 H 08/31/24 15:18 Respiratory Rate 18 08/31/24 15:18 Blood Pressure 146/89 H 08/31/24 15:18 Pulse Oximetry 95 08/31/24 15:18 Temperature 36.5 C 08/31/24 15:18 Temperature Source Oral 08/31/24 15:18 Pulse 103 H 08/31/24 15:18 Respiratory Rate 18 08/31/24 15:18 Blood Pressure 146/89 H 08/31/24 15:18 Pulse Oximetry 95 08/31/24 15:18 Oxygen Delivery Method Room Air 08/31/24 15:18 Oxygen Flow Rate 0 08/31/24 15:18 Medical Decision Making PROCEDURE: Instilled 4 cm? of 1% lidocaine with epinephrine. Placed 7 sutures (6 vertical mattress, 1 simple). Tolerated procedure well. Irrigated area and placed in thumb abductor splint. Initial Assessment: 69-year-old male with a 3 cm laceration on the dorsal aspect of the left thumb, unable to fully extend thumb, with an obvious defect to the extensor tendon. Sensation intact distally, able to fully flex and extend distal thumb. ED Course: - Wound cleaned - 7 sutures placed (6 vertical mattress, 1 simple) - Instillation of 4 cm? of 1% lidocaine with epinephrine - Tolerated procedure well - Placed in thumb abductor splint Final Assessment: Patient with a 3 cm laceration on the dorsal aspect of the l eft thumb, with an obvious defect to the extensor tendon. Procedure included cleaning the wound, placing 7 sutures, and applying a thumb abductor splint. Clindamycin prescribed due to suspected KEFLEX allergy. Pain management with Motrin and Tylenol. Orthopedic follow-up necessary for suspected extensor pollicis longus injury. Clinical Impression: - Laceration on the left thumb - Suspected extensor pollicis longus injury Disposition: - Follow-Up: Orthopedic follow-up necessary MDM Components Evaluation: - Number of Differential Diagnoses or Management Options: Suspected extensor pollicis longus injury - Amount and Complexity of Data Reviewed: Physical examination, patient history - Risk of Complication and Morbidity or Mortality: Moderate due to tendon injury and potential infection Quality:[facility] Health Related Social Needs: No Data to Display PFSH All Active Problems (Updated 08/31/24 @ 16:39 by CHARLES Ceron) Laceration of extensor tendon of left thumb at hand level (Acute) Spongiotic dermatitis (Acute) Medical History Dizziness Infected hematoma Surgical History S/P debridement infected hematoma of right porter Social History Smoking/Tobacco Use Status: Never Smoking risk assessment performed?: Yes Alcohol Intake: never Drug use: Never Substance use type: does not use Do you feel safe at home: Yes Do you feel safe in your relationship?: Yes
== END 2024-08-31 16:47 | disposition home or self-care (01) ==
LOC: ER 16:54
PROVIDERS: Emergency Provider Physician Assistant; PCP Family Medicine
DX: S66.222A Laceration of extensor muscle, fascia and tendon of left thumb at wrist and hand level, initial encounter (principal); W26.0XXA Contact with knife, initial encounter
CPT/HCPCS: 12002; 99283; J2004

== ENCOUNTER 2025-06-04 14:47 | Outpatient (REF) | payer MEDICARE, SELFPAY ==
[2025-06-04 09:42] LABS: Anion Gap 11.1 mmol/L (3-11); BUN 20 mg/dL (9-23); CO2 23.9 mmol/L (20.0-31.0); Calcium 9.5 mg/dL (8.3-10.6); Chloride 106 mmol/L (98-107); Glucose 105 mg/dL (74-106); Potassium 4.5 mmol/L (3.5-5.1); Sodium 141 mmol/L (136-145)
== END 2025-06-04 14:48 | disposition home or self-care (01) ==
LOC: NCHCN 14:47
PROVIDERS: PCP Family Medicine; Visit Provider Family Medicine
DX: I10 Essential (primary) hypertension (principal)
CPT/HCPCS: 80048